=== PATIENT | male | born 1955 | race Caucasian/White ===

== ENCOUNTER → 2016-12-23 | Outpatient (REF) ==
--- NOTE | 2016-12-23 12:17 | REP ---
Left knee five views: There is spurring at the lateral margin of the fibular head. Mineralization is normal. The joint spaces are unremarkable. There is no effusion. There are no unusual calcifications. There are enthesophytes at the superior and inferior poles of the patella as degenerative changes. Impression: Degenerative changes as described. Signed by Nathan Warrne MD 12/23/2016 12:09 P
== END ==
LOC: M SMT 11:30
PROVIDERS: ATTEND Internal Medicine
DX: M51.36 Other intervertebral disc degeneration, lumbar region (principal)